=== PATIENT | female | born 1935 | race African-American/Black ===

== ENCOUNTER 2016-10-27 19:16 | Inpatient (IN) | payer MEDICARE, MEDICAID ==
[~2016-10-27] VITALS: Ht 165.1 cm; Wt 65.8 kg
[2016-10-27] MEDS ORDERED: ASPIRIN 81MG TABLET PO STA (19:40)
[2016-10-27] MEDS ORDERED: METHYLPREDNISOLONE SOD SUCC 125 MG/2 ML VIAL IV STA (19:40)
[2016-10-27] MEDS ORDERED: ALBUTEROL (0.083%) 2.5MG/3ML NEB HHN STA (19:40)
[2016-10-27] MEDS ORDERED: FUROSEMIDE 40MG/4ML VIAL IV STA (19:40)
[2016-10-27] MEDS ORDERED: IPRATROPIUM BROMIDE (0.02%) 0.5MG/2.5ML NEB HHN STA (19:40)
[2016-10-27] MEDS ORDERED: LEVOFLOXACIN 750MG PREMIX 150 ML IV ONE (19:45)
[2016-10-27] MEDS ORDERED: ALBUTEROL (0.5%) 2.5MG/0.5ML NEB HHN ONE (20:04)
[2016-10-27 20:17] LABS: BG BASE EXCESS -0.7 mmol/L (-2.0-2.0); BG CARBOXYHEMOGLOBIN 3.6 % (0.5-1.5); BG DEOXYHEMOGLOBIN 7.1 % (0.0-5.0); BG FRACTION INSPIRED OXYGEN 28; BG HCO3 ACT 23.2 mmol/L (22.0-26.0); BG METHEMOGLOBIN 0.1 % (0.0-1.5); BG OXYGEN SATURATION 92.6 % (92.0-98.5); BG OXYHEMOGLOBIN 89.2 % (94.0-97.0); BG PH 7.427 (7.350-7.450); BG PO2 59.2 mmHg (75.0-100.0); BG SAMPLE SITE RIGHT RADIAL; BG TOTAL HEMOGLOBIN 12.7 g/dL (12.0-18.0); BG VENT MODE NASAL CANNULA
[2016-10-27 20:49] LABS: BASOPHILS % 0.8 % (0.0-2.0); EOSINOPHILS % 2.1 % (0.0-5.0); HEMATOCRIT. 41.3 % (36.0-48.0); HEMOGLOBIN. 13.4 g/dL (12.0-16.0); LYMPHOCYTES % 21.5 % (20.0-50.0); MEAN CORPUSCULAR HEMOGLOBIN 28.3 pg (28.0-32.0); MEAN CORPUSCULAR HGB CONC 32.4 g/dL (31.0-37.0); MEAN CORPUSCULAR VOLUME 87.3 fL (81.0-99.0); MEAN PLATELET VOLUME 8.9 fl (7.4-10.4); MONOCYTES % 7.4 % (2.0-8.0); NEUTROPHILS % 68.2 % (40.0-76.0); PLATELET 192 x1000/uL (130-400); RED BLOOD CELL COUNT 4.73 mill/uL (4.2-5.4); RED CELL DISTRIBUTION WIDTH 15.2 % (11.6-14.6); WHITE BLOOD COUNT 10.5 x1000/uL (4.5-11.0)
[2016-10-27 20:55] LABS: D-DIMER 1.32 mg/L FEU (<0.50); PARTIAL THROMBOPLASTIN TIME 24.5 sec (24.0-34.0); PROTHROMBIN TIME 10.2 sec
[2016-10-27 21:02] LABS: ALANINE AMINOTRANSFERASE 27 IU/L (13-61); ALBUMIN 3.4 g/dL (3.4-5.0); ANION GAP 15; CALCIUM 9.1 mg/dL (8.5-10.1); CARBON DIOXIDE 26 mEq/L (21-32); CHLORIDE 104 mEq/L (98-107); CREATINE KINASE 116 IU/L (26-192); INDEX HEMOLYSI 1 (1-3); INDEX ICTERIC 1 (1-4); INDEX LIPEMIC 1 (1-3); LIPASE 600 IU/L (73-393); NT PRO B-TYPE NATRIURETIC PEP 3869 pg/mL (5-125); TROPONIN I 0.04 ng/mL (0.00-0.04); UREA NITROGEN BLOOD 10 mg/dL (7-21); eGFR 58 mL/min (>60)
[2016-10-27 21:14] LABS: LACTIC ACID 2.8 mmol/L (0.4-2.0)
[2016-10-27] MEDS ORDERED: MAGNESIUM/ALUMINUM HYDROXIDE/SIMETHICONE 30ML UDC PO PRN (23:00)
[2016-10-27] MEDS ORDERED: DIPHENHYDRAMINE 50MG/ML VIAL IV PRN (23:00)
[2016-10-27] MEDS ORDERED: MORPHINE SULFATE 2 MG/ML CPJ (NOT FOR IM USE) IV PRN (23:00)
[2016-10-27] MEDS ORDERED: CLONIDINE 0.1MG TABLET PO PRN (23:00)
[2016-10-27] MEDS ORDERED: DOCUSATE SODIUM 100MG CAPSULE PO PRN (23:00)
[2016-10-27] MEDS ORDERED: ACETAMINOPHEN 325MG TABLET PO PRN (23:00)
[2016-10-27] MEDS ORDERED: IPRATROPIUM/ALBUTEROL 0.5-3(2.5)MG/3ML NEB INH PRN (23:00)
[2016-10-27] MEDS ORDERED: NA PHOS,M-B/NA PHOS,DI-BA ENEMA 118ML PR PRN (23:00)
[2016-10-27] MEDS ORDERED: TRAMADOL 50MG TABLET PO PRN (23:00)
[2016-10-27] MEDS ORDERED: ONDANSETRON HCL 4MG/2ML VIAL IV PRN (23:00)
[2016-10-27] MEDS ORDERED: NITROGLYCERIN 0.4MG TABLET SL SL PRN (23:00)
[2016-10-28 06:29] LABS: CREATINE KINASE MB FRACTION 2.2 ng/mL (0.5-3.6); TROPONIN I 0.04 ng/mL (0.00-0.04)
[2016-10-28] MEDS: METHYLPREDNISOLONE SOD SUCC 125 MG/2 ML VIAL IV SCH ×3 (06:35→21:03)
[2016-10-28] MEDS: CARVEDILOL 3.125 MG TABLET PO SCH ×2 (06:35→18:38)
[2016-10-28] MEDS ORDERED: CEFTRIAXONE 1 G PREMIX 50 ML IV SCH (09:00)
[2016-10-28] MEDS: PANTOPRAZOLE SODIUM 40 MG/VIAL IV SCH (09:45)
[2016-10-28] MEDS: GUAIFENESIN/DM 600MG/30MG ER TAB 12HR PO SCH ×2 (09:45→21:33)
[2016-10-28] MEDS: ZINC SULFATE 220 MG ( 50 ) CAPSULE PO SCH (09:45)
[2016-10-28] MEDS: LISINOPRIL 20MG TABLET PO SCH ×2 (09:45→21:04)
[2016-10-28] MEDS: ASPIRIN 325MG EC TABLET PO SCH (09:45)
[2016-10-28] MEDS: ENOXAPARIN 40MG/0.4ML SYR SUBCUT SCH (09:47)
[2016-10-28] MEDS: IPRATROPIUM/ALBUTEROL 0.5-3(2.5)MG/3ML NEB HHN SCH ×3 (14:30→20:39)
[2016-10-28] MEDS: BUDESONIDE 0.5MG/2ML NEB HHN SCH ×2 (14:30→20:39)
[2016-10-28 19:00] LABS: TROPONIN I 0.03 ng/mL (0.00-0.04)
[2016-10-28] MEDS ORDERED: AMIODARONE PO (19:58)
[2016-10-28] MEDS ORDERED: COR12 PO (19:58)
[2016-10-28] MEDS ORDERED: SPIR25TA4 PO (19:58)
[2016-10-28] MEDS ORDERED: PRAV40TA58 PO (19:58)
[2016-10-28] MEDS ORDERED: LOSA50TA20 PO (19:58)
[2016-10-28] MEDS ORDERED: FURO40TA5 PO (19:58)
[2016-10-28] MEDS ORDERED: WARF2TAB55 PO (19:58)
[2016-10-28] MEDS ORDERED: ALLO100T PO (19:58)
[2016-10-28] MEDS ORDERED: ALBU2SYR PO (19:58)
[2016-10-28] MEDS ORDERED: ACET1TAB12 PO (19:58)
[2016-10-28] MEDS ORDERED: LEVO100T9 PO (19:59)
[2016-10-28] MEDS ORDERED: WARF4TAB39 PO (19:59)
[2016-10-28] MEDS ORDERED: BREO ELLIPTA INHALER (19:59)
[2016-10-28] MEDS ORDERED: ALBU18HF2 IH (19:59)
[2016-10-28] MEDS ORDERED: LEVOFLOXACIN 250MG PREMIX 50 ML IV SCH (20:00)
[2016-10-28] MEDS: LEVOFLOXACIN 250MG PREMIX 50 ML IV SCH (22:09)
[2016-10-28] MEDS: ZOLPIDEM TARTRATE 5MG TABLET PO PRN (22:09)
[2016-10-29 00:32] LABS: *AMPHETAMINES SCREEN URINE NEGATIVE (NEGATIVE); *BARBITURATES SCREEN URINE NEGATIVE (NEGATIVE); *BENZODIAZEPINES SCREEN URINE NEGATIVE (NEGATIVE); *COCAINE SCREEN URINE NEGATIVE (NEGATIVE); CANNABINOID URINE SCREEN NEGATIVE (NEGATIVE); ECSTASY MDMA SCREEN URINE NEGATIVE (NEGATIVE); METHADONE URINE SCREEN NEGATIVE (NEGATIVE); OPIATES URINE SCREEN PRESUMTIVE POSITIVE (NEGATIVE); PHENCYCLIDINE URINE SCREEN NEGATIVE (NEGATIVE)
[2016-10-29] MEDS: IPRATROPIUM/ALBUTEROL 0.5-3(2.5)MG/3ML NEB HHN SCH ×6 (00:37→20:47)
[2016-10-29] MEDS: METHYLPREDNISOLONE SOD SUCC 125 MG/2 ML VIAL IV SCH ×2 (05:50→14:16)
[2016-10-29] MEDS: GUAIFENESIN 200MG/10ML SUGAR FREE UDC PO PRN (05:50)
[2016-10-29] MEDS: CARVEDILOL 3.125 MG TABLET PO SCH ×2 (05:51→18:20)
[2016-10-29] MEDS: BUDESONIDE 0.5MG/2ML NEB HHN SCH ×2 (07:14→20:48)
[2016-10-29] MEDS: PANTOPRAZOLE SODIUM 40 MG/VIAL IV SCH (08:31)
[2016-10-29] MEDS: ZINC SULFATE 220 MG ( 50 ) CAPSULE PO SCH (08:31)
[2016-10-29] MEDS: ASPIRIN 325MG EC TABLET PO SCH (08:31)
[2016-10-29] MEDS: LISINOPRIL 20MG TABLET PO SCH ×2 (08:31→21:00)
[2016-10-29] MEDS: GUAIFENESIN/DM 600MG/30MG ER TAB 12HR PO SCH ×2 (08:32→21:32)
[2016-10-29] MEDS: ENOXAPARIN 40MG/0.4ML SYR SUBCUT SCH (08:35)
[2016-10-29] MEDS: METHYLPREDNISOLONE SOD SUCC 40 MG/ML VIAL IV SCH (21:33)
[2016-10-29] MEDS: LEVOFLOXACIN 250MG PREMIX 50 ML IV SCH (22:57)
[2016-10-29] MEDS: ZOLPIDEM TARTRATE 5MG TABLET PO PRN (23:52)
[2016-10-30] MEDS: IPRATROPIUM/ALBUTEROL 0.5-3(2.5)MG/3ML NEB HHN SCH ×6 (00:38→20:58)
[2016-10-30] MEDS: CARVEDILOL 3.125 MG TABLET PO SCH (06:52)
[2016-10-30] MEDS: GUAIFENESIN/DM 600MG/30MG ER TAB 12HR PO SCH ×2 (08:45→21:55)
[2016-10-30] MEDS: METHYLPREDNISOLONE SOD SUCC 40 MG/ML VIAL IV SCH ×2 (08:45→21:54)
[2016-10-30] MEDS: FAMOTIDINE 20MG/2ML VIAL IV SCH (08:45)
[2016-10-30] MEDS: ZINC SULFATE 220 MG ( 50 ) CAPSULE PO SCH (08:45)
[2016-10-30] MEDS: LISINOPRIL 20MG TABLET PO SCH ×2 (08:51→21:00)
[2016-10-30] MEDS: ENOXAPARIN 40MG/0.4ML SYR SUBCUT SCH (08:55)
[2016-10-30] MEDS: ASPIRIN 325MG EC TABLET PO SCH (08:58)
[2016-10-30] MEDS: BUDESONIDE 0.5MG/2ML NEB HHN SCH ×2 (09:55→20:58)
[2016-10-30] MEDS: CARVEDILOL 12.5MG TABLET PO SCH (19:14)
[2016-10-30] MEDS: LEVOFLOXACIN 250MG PREMIX 50 ML IV SCH (23:09)
[2016-10-31] MEDS ORDERED: ZOLPIDEM TARTRATE 5MG TABLET PO PRN
[2016-10-31] MEDS: GUAIFENESIN 200MG/10ML SUGAR FREE UDC PO PRN ×4 (00:20→22:34)
[2016-10-31] MEDS: IPRATROPIUM/ALBUTEROL 0.5-3(2.5)MG/3ML NEB HHN SCH ×6 (00:55→20:57)
[2016-10-31] MEDS: CARVEDILOL 12.5MG TABLET PO SCH ×2 (05:59→17:51)
[2016-10-31 07:05] LABS: ALANINE AMINOTRANSFERASE 24 IU/L (13-61); ALBUMIN 2.7 g/dL (3.4-5.0); ANION GAP 10; CALCIUM 8.7 mg/dL (8.5-10.1); CARBON DIOXIDE 27 mEq/L (21-32); CHLORIDE 103 mEq/L (98-107); CREATINE KINASE 101 IU/L (26-192); CREATINE KINASE MB FRACTION 1.9 ng/mL (0.5-3.6); INDEX HEMOLYSI 1 (1-3); INDEX ICTERIC 1 (1-4); INDEX LIPEMIC 1 (1-3); MAGNESIUM 2.2 mg/dL (1.8-2.4); TROPONIN I 0.04 ng/mL (0.00-0.04); UREA NITROGEN BLOOD 24 mg/dL (7-21); eGFR 58 mL/min (>60)
[2016-10-31] MEDS: BUDESONIDE 0.5MG/2ML NEB HHN SCH (08:37)
[2016-10-31] MEDS: LISINOPRIL 20MG TABLET PO SCH ×2 (08:38→22:34)
[2016-10-31] MEDS: FAMOTIDINE 20MG/2ML VIAL IV SCH (08:38)
[2016-10-31] MEDS: ZINC SULFATE 220 MG ( 50 ) CAPSULE PO SCH (08:38)
[2016-10-31] MEDS: ASPIRIN 325MG EC TABLET PO SCH (08:38)
[2016-10-31] MEDS: METHYLPREDNISOLONE SOD SUCC 40 MG/ML VIAL IV SCH ×2 (08:38→22:34)
[2016-10-31] MEDS: ENOXAPARIN 40MG/0.4ML SYR SUBCUT SCH (08:38)
[2016-10-31] MEDS: GUAIFENESIN/DM 600MG/30MG ER TAB 12HR PO SCH ×2 (08:38→22:34)
[2016-10-31 08:59] LABS: HEMATOCRIT. 36.6 % (36.0-48.0); HEMOGLOBIN. 11.6 g/dL (12.0-16.0); MEAN CORPUSCULAR HEMOGLOBIN 27.9 pg (28.0-32.0); MEAN CORPUSCULAR HGB CONC 31.7 g/dL (31.0-37.0); MEAN CORPUSCULAR VOLUME 88.1 fL (81.0-99.0); RED BLOOD CELL COUNT 4.15 mill/uL (4.2-5.4); RED CELL DISTRIBUTION WIDTH 15.3 % (11.6-14.6); WHITE BLOOD COUNT 12.1 x1000/uL (4.5-11.0)
[2016-10-31 09:00] LABS: DIFFERENTIAL COMMENT 1
[2016-10-31 11:31] LABS: T4 FREE 0.65 ng/dL (0.76-1.46)
[2016-10-31 11:43] LABS: PLATELET 171 x1000/uL (130-400)
[2016-10-31 11:46] LABS: PLATELET ESTIMATE NORMAL
[2016-10-31 11:58] LABS: T3 FREE < 0.50 pg/ml (2.18-3.98)
[2016-10-31] MEDS ORDERED: ATORVASTATIN CALCIUM 20MG TABLET PO SCH (21:00)
[2016-10-31] MEDS ORDERED: ATORVASTATIN CALCIUM 10MG TABLET PO SCH (21:00)
[2016-10-31] MEDS: LEVOFLOXACIN 250MG PREMIX 50 ML IV SCH (22:44)
[2016-11-01] MEDS: IPRATROPIUM/ALBUTEROL 0.5-3(2.5)MG/3ML NEB HHN SCH ×5 (01:02→14:34)
[2016-11-01] MEDS: GUAIFENESIN 200MG/10ML SUGAR FREE UDC PO PRN (04:38)
[2016-11-01 06:30] LABS: ALANINE AMINOTRANSFERASE 26 IU/L (13-61); ANION GAP 12; CARBON DIOXIDE 28 mEq/L (21-32); CHLORIDE 103 mEq/L (98-107); INDEX HEMOLYSI 2 (1-3); INDEX ICTERIC 1 (1-4); INDEX LIPEMIC 1 (1-3); MAGNESIUM 2.3 mg/dL (1.8-2.4); UREA NITROGEN BLOOD 26 mg/dL (7-21); eGFR 52 mL/min (>60)
[2016-11-01 06:52] LABS: ALBUMIN 2.6 g/dL (3.4-5.0); CALCIUM 8.9 mg/dL (8.5-10.1)
[2016-11-01] MEDS: CARVEDILOL 12.5MG TABLET PO SCH (06:58)
[2016-11-01 07:05] LABS: HEMATOCRIT. 36.4 % (36.0-48.0); HEMOGLOBIN. 11.9 g/dL (12.0-16.0); MEAN CORPUSCULAR HEMOGLOBIN 28.3 pg (28.0-32.0); MEAN CORPUSCULAR HGB CONC 32.7 g/dL (31.0-37.0); MEAN CORPUSCULAR VOLUME 86.5 fL (81.0-99.0); MEAN PLATELET VOLUME 10.3 fl (7.4-10.4)
[2016-11-01 08:02] LABS: DIFFERENTIAL COMMENT 1
[2016-11-01] MEDS: METHYLPREDNISOLONE SOD SUCC 40 MG/ML VIAL IV SCH (08:31)
[2016-11-01] MEDS: ASPIRIN 325MG EC TABLET PO SCH (08:31)
[2016-11-01] MEDS: FAMOTIDINE 20MG/2ML VIAL IV SCH (08:31)
[2016-11-01] MEDS: GUAIFENESIN/DM 600MG/30MG ER TAB 12HR PO SCH (08:31)
[2016-11-01] MEDS: ZINC SULFATE 220 MG ( 50 ) CAPSULE PO SCH (08:32)
[2016-11-01] MEDS: LISINOPRIL 20MG TABLET PO SCH (08:32)
[2016-11-01] MEDS: ENOXAPARIN 40MG/0.4ML SYR SUBCUT SCH (08:44)
[2016-11-01 09:45] LABS: ANISOCYTOSIS 1+; PLATELET ESTIMATE NORMAL
[2016-11-01 09:47] LABS: PLATELET 198 x1000/uL (130-400)
[2016-11-01 15:44] VITALS: BP 127/60
== END 2016-11-01 16:30 | disposition home or self-care (01) | DRG 291 ==
LOC: ER 19:16 → 6WST 10-28 02:24
PROVIDERS: ADMIT Internal Medicine; ATTEND Internal Medicine
PROC: 4A02X4Z Measurement of Cardiac Electrical Activity, External Approach (ICD-10-PCS; principal; 2016-10-31)
PROC: 4A02XFZ Measurement of Cardiac Rhythm, External Approach (ICD-10-PCS; 2016-10-31)
DX: I11.0 Hypertensive heart disease with heart failure (principal); J96.00 Acute respiratory failure, unspecified whether with hypoxia or hypercapnia; J44.1 Chronic obstructive pulmonary disease with (acute) exacerbation; I47.2 Ventricular tachycardia; I50.23 Acute on chronic systolic (congestive) heart failure; I42.0 Dilated cardiomyopathy; F17.210 Nicotine dependence, cigarettes, uncomplicated; E78.00 Pure hypercholesterolemia, unspecified; E86.0 Dehydration; I34.0 Nonrheumatic mitral (valve) insufficiency; Z82.49 Family history of ischemic heart disease and other diseases of the circulatory system; Z95.810 Presence of automatic (implantable) cardiac defibrillator; Z99.81 Dependence on supplemental oxygen; Z95.0 Presence of cardiac pacemaker; Z88.0 Allergy status to penicillin
CPT/HCPCS: 36415; 36600; 51702; 71010; 78582; 80053; 80061; 80305; 82375; 82550; 82553; 82805; 83036; 83605; 83690; 83735; 83880; 84439; 84443; 84481; 84484; 85025; 85379; 85610; 85730; 87040; 93005; 93306; 93970; 94640; 99285; A9558; C9113; J1650; J1940; J1956; J2920; J2930; J3490; J7050; J7611; J7620; J7626; A4315